=== PATIENT | female | born 1980 | race Caucasian/White ===

== ENCOUNTER → 2016-08-28 | Outpatient (CLI) | payer BC ==
[~2016-08-28] MED LIST: BUTA1CAP17 PO; MULTTAB58 PO
[2016-08-28 09:36] LABS: MEAN CELL VOLUME 93.8 fL (80-100); MEAN CORPUSCULAR HEMOGLOBIN 30.2 pg (25-34); MEAN CORPUSCULAR HGB CONC 32.2 g/dl (32-36); MEAN PLATELET VOLUME 9.5 fL (7.4-10.4); PLATELET COUNT 276 K/uL (130-400); RED BLOOD COUNT 4.37 M/uL (4.2-5.4); WHITE BLOOD COUNT 7.89 K/uL (4.8-10.8)
[2016-08-28 09:55] LABS: CHOLESTEROL/HDL RATIO 3.2; THYROID STIMULATING HORMONE 1.17 uIu/ml (0.300-4.500)
== END | disposition home or self-care (01) ==
LOC: C.LAB1850 06:57
PROVIDERS: ATTEND Internal Medicine
DX: D50.9 Iron deficiency anemia, unspecified (principal); Z83.49 Family history of other endocrine, nutritional and metabolic diseases

== ENCOUNTER → 2017-09-12 | Outpatient (CLI) | payer BC ==
--- NOTE | 2017-09-12 13:21 | DIAGNOSTIC IMAGING REPORT ---
THYROID ULTRASONOGRAPHY CLINICAL HISTORY: Thyroid goiter multinodular gland COMPARISON STUDY: Outside [facility] study performed March 2015 FINDINGS: The right lobe of the thyroid measures 59 x 14 x 24 mm. There are multiple circumscribed hypoechoic right lobe nodules most of which demonstrate colloid artifact. The largest is located within the midpole measuring 8 mm in diameter. Minimal interval growth is identified when compared the prior study The left of the thyroid measures 50 x 11 x 17 mm. There are multiple circumscribed hypoechoic left lobe nodules, many of which demonstrate colloid artifact. The largest measures 1 cm. Minimal interval growth is identified when compared the prior study IMPRESSION: Multinodular thyroid gland demonstrating minimal interval growth when compared the prior March 2015 study. None of the nodules demonstrate morphologically suspicious characteristics. Electronically signed by: Nicolas Garduno M.D. 09/12/2017 1:19 PM Dictated Date/Time: 09/12/2017 1:16 PM
== END | disposition home or self-care (01) ==
LOC: C.ULTR 11:29
PROVIDERS: ATTEND Internal Medicine Endocrinology, Diabetes & Metabolism
DX: E04.2 Nontoxic multinodular goiter (principal)

== ENCOUNTER → 2017-12-18 | Outpatient (CLI) | payer BC | END | disposition home or self-care (01) | LOC: C.LAB1850 07:17 | PROVIDERS: ATTEND Internal Medicine | DX: Z00.00 Encounter for general adult medical examination without abnormal findings (principal); Z83.49 Family history of other endocrine, nutritional and metabolic diseases ==

== ENCOUNTER → 2017-12-18 | Outpatient (CLI) | payer BC | END | disposition home or self-care (01) | LOC: C.LAB1850 07:20 | PROVIDERS: ATTEND Internal Medicine Endocrinology, Diabetes & Metabolism | DX: E04.9 Nontoxic goiter, unspecified (principal); E55.9 Vitamin D deficiency, unspecified ==

== ENCOUNTER 2020-03-16 21:20 | Observation (INO) ==
[2020-03-16] MEDS ORDERED: SODIUM CHLORIDE 0.9% 1000ML 1,000 ML IV SCH (21:45)
--- NOTE | 2020-03-16 21:48 | Emergency Department Note ---
History of Present Illness General Chief complaint: Abdominal Pain Stated complaint: HYSTERECTOMY SATURDAY, FEVER, ABD PAIN Time Seen by Provider: 03/16/20 21:30 History of Present Illness Maximum Pain Intensity: 6 This is a 39-year-old female that presents to the emergency department via [employer] vehicle with complaints "hysterectomy Saturday, fever, abdominal pain". The patient notes that this past Saturday, 03/11 she underwent total laparoscopic hysterectomy, as well as bilateral salpingectomy. Patient notes that ovaries are still present. She was doing well in the postoperative state until yesterday evening noting that the pain sharply increased. It is in the lower pelvic region and notes also in the rectal region. She has been moving the bowels without difficulty. There is associated nausea. Overall discomfort currently is a 6/10 but will sharply increase randomly. She denies any chest pain, shortness of breath, cough, loss of taste or smell. Home Medications Medication Instructions Recorded Confirmed Type [id number] 1 tab PO DAILY PRN 12/20/18 03/16/20 History ibuprofen 600 mg PO Q6H PRN 12/20/18 03/16/20 History rizatriptan 5 mg PO DIRECTED PRN 02/16/20 03/16/20 History acetaminophen [Tylenol] 325 mg PO QID PRN 03/16/20 03/16/20 History docusate sodium [Stool Softener] 100 mg PO BID PRN 03/16/20 03/16/20 History oxycodone-acetaminophen 1 tab PO Q4H PRN 03/16/20 03/16/20 History simethicone [Gas-X Extra Strength] 125 mg PO TID PRN 03/16/20 03/16/20 History Allergies Allergy/AdvReac Type Severity Reaction Status Date / Time No Known Allergies Allergy Verified 03/16/20 22:08 Past Med/Surg History Medical History Anxiety Arthritis cervical- no ROM limitations Gastritis H pylori ulcer hx Kidney stones Migraine Renal colic Surgical History History of adenoidectomy History of colonoscopy History of cystoscopy + stent History of esophagogastroduodenoscopy (EGD) History of lithotripsy x2 History of tonsillectomy History of tooth extraction WTE Family History Mother Family history of reaction to anesthesia PONV, DIZZINESS Grandfather (Maternal) Family history of diabetes mellitus Grandfather (Paternal) Family history of diabetes mellitus Grandmother (Paternal) Family history of diabetes mellitus Grandmother (Maternal) Family history of diabetes mellitus Other No significant family history Social History Smoking Status: Never smoker Second Hand Exposure: No; Hx Alcohol Use: Yes Alcohol type: wine Hx Substance Use: No Preferred Language: Albanian Communication Ability: Effective Beater Room Helper Required: No Beliefs That Will Affect Care: None Current Living Situation: Spouse and Family Feels Safe at Home: Yes Assistive Devices: Glasses Review of Systems A total of 10 systems reviewed and were otherwise negative Physical Exam Vital Signs Vital Signs - 24 hr 03/16/20 21:25 03/16/20 22:30 Temperature 37.6 C H Temperature Source Oral Pulse Rate 109 H 81 Pulse Rate [Apical] 81 Pulse Rhythm Regular Pulse Rhythm [Apical] Regular Pulse Strength [Apical] Normal Respiratory Rate 18 14 Respiratory Effort / Characteristics Non-Labored Spontaneous Non-Labored Spontaneous Respiratory Depth Normal Normal Respiratory Pattern Regular Regular Blood Pressure 124/68 Blood Pressure [Left Arm] 103/65 Blood Pressure Mean 86 Blood Pressure Mean [Left Arm] 77 Blood Pressure Position [Left Arm] Semi-fowlers Pulse Oximetry 96 100 Oxygen Delivery Method Room Air Room Air Sepsis Recent Fever Within 48 Hours Yes Sepsis New/Unexplained Change in Mental Status N/A Sepsis Action Taken by Nursing No Action Required VITAL SIGNS - Vital signs and nursing notes were reviewed. Patient is borderline tachycardic with a temperature of 37.6 C. GENERAL - 39-year-old female appearing her stated age who is in no acute distress. Communicates well with provider and answers questions appropriately. SKIN - Without rashes. HEAD - NC/AT. NECK - Neck with FROM. No nuchal rigidity. LUNGS - Chest wall symmetric without accessory muscle use, intercostals retr actions, or central cyanosis. Normal vesicular breath sounds CTA B/L. No wheezes, rales, or rhonchi appreciated. CARDIAC - RRR with S1/S2. No murmur, rubs, or gallops appreciated. ABDOMEN - Abdominal contour normal without pulsations or visible masses. BS normoactive all four quadrants. There is bilateral lower abdominal tenderness to palpation. No palpable masses, hepatosplenomegaly, or ascites noted. EXTREMITIES - No clubbing or peripheral cyanosis. No pretibial edema present. +5/5 strength noted in UE/LE bilaterally. NEUROLOGIC - Cranial nerves II through XII grossly intact. Sensory intact to light touch throughout. PSYCH - A&O, and cooperates fully with examiner. Pt is very pleasant and interacts well with examiner. Course Administered Medications Discontinued Medications Sodium Chloride (Nss 1000ml) 1,000 mls @ 999 mls/hr IV .Q1H1M CHAUNCEY Stop: 03/16/20 22:45 Last Infusion: 03/16/20 23:30 Dose: 0 mls/hr Documented by: [id number] Admin: 03/16/20 22:40 Dose: 999 mls/hr Documented by: [id number] Ioversol (Ioversol 100ml) 93 ml IV ONCE ONE Stop: 03/16/20 23:18 Last Admin: 03/16/20 23:17 Dose: 93 ml Documented by: [id number] Morphine Sulfate (Morphine Sulfate 4 Mg/Ml 1 Ml Carp\\Vial) 4 mg IV NOW STA Stop: 03/16/20 23:36 Last Admin: 03/16/20 23:39 Dose: 4 mg Documented by: [id number] Morphine Sulfate (Morphine Sulfate 4 Mg/Ml 1 Ml Carp\\Vial) 4 mg IV NOW STA Stop: 03/17/20 01:37 Last Admin: 03/17/20 01:37 Dose: 4 mg Documented by: [id number] Ondansetron HCl (Ondansetron Inj 2 Mg/Ml 2 Ml Vial) 4 mg IV NOW STA Stop: 03/16/20 23:36 Last Admin: 03/16/20 23:39 Dose: 4 mg Documented by: [id number] Medical Decision Making Laboratory Data Result diagrams: 03/16/20 22:17 03/16/20 22:17 Lab Results 03/16/20 03/16/20 03/16/20 Range/Units 22:17 22:17 22:17 WBC 17.05 H (4.8-10.8) K/uL RBC 3.96 L (4.2-5.4) M/uL Hgb 12.2 (12.0-16.0) g/dL Hct 36.9 L (37-47) % MCV 93.2 (80-100) fL MCH 30.8 (25-34) pg MCHC 33.1 (32-36) g/dL RDW Std Deviation 46.0 (36.4-46.3) fL RDW Coeff of Aspen 13.3 (11.5-14.5) % Plt Count 266 (130-400) K/uL MPV 9.5 (7.4-10.4) fL Immature Gran % (Auto) 0.2 % Neut % (Auto) 82.6 % Lymph % (Auto) 8.2 % Bell % (Auto) 8.4 % Eos % (Auto) 0.5 % Baso % (Auto) 0.1 % Neut # (Auto) 14.09 H (1.4-6.5) K/uL Lymph # (Auto) 1.39 (1.2-3.4) K/uL Bell # (Auto) 1.43 H (0.11-0.59) K/uL Eos # (Auto) 0.09 (0-0.5) K/uL Baso # (Auto) 0.01 (0-0.2) K/uL Immature Gran # (Auto) 0.04 H (0.00-0.02) K/uL Sodium 138 (136-145) mmol/L Potassium 3.5 (3.5-5.1) mmol/L Chloride 106 (98-107) mmol/L Carbon Dioxide 25 (21-32) mmol/L Anion Gap 7.0 (3-11) BUN 7 (7-18) mg/dl Creatinine 0.70 (0.6-1.2) mg/dl Est Cr Clr Drug Dosing 102.9 ml/min Est GFR ( Amer) 124.7 Est GFR (Non-Af Amer) 107.6 BUN/Creatinine Ratio 9.6 L (10-20) Glucose 114 H (70-99) mg/dl Lactate 0.8 (0.4-2.0) mmol/L Calcium 9.2 (8.5-10.1) mg/dl Magnesium 1.8 (1.8-2.4) mg/dl Total Bilirubin 0.4 (0.2-1) mg/dl AST 26 (15-37) U/L ALT 38 (12-78) U/L Alkaline Phosphatase 65 (45-117) U/L Troponin I < 0.015 (0-0.045) ng/ml Total Protein 7.3 (6.4-8.2) gm/dl Albumin 3.6 (3.4-5.0) gm/dl Globulin 3.7 (2.5-4.0) gm/dl Albumin/Globulin Ratio 1.0 (0.9-2) Imaging Data Radiologist's Impression: CT ABDOMEN & PELVIS With Contrast: Comparison: 12/20/2018 2/2 stable left lateral lower lobe 4.5 mm lung nodule. Mild fatty infiltration of liver 2-3 mm left kidney mid to lower pole nonobstructive stones and bilateral renal sub-centimeters cortical cysts. Status post hysterectomy. Negative for any pelvic abscess. Small dependent pelvic cul-de-sac free fluid. Urinary bladder is unremarkable. Small bowel and large bowel loops are seen unremarkable. Mild ileus may be present. Radiologist: Gómez Moody MD Study ready at 23:51 and initial results transmitted at 00:01 US VENOUS BILATERAL LOWER EXTREMITIES: No evidence for bilateral lower extremity DVT. Radiologist: Dre Bean M.D. Study ready at 23:28 and initial results transmitted at 23:40 [facility] Narrative Patient was seen and evaluated as above in room in room B6. Review was performed of nursing notes and vital signs. I did review pertinent previous visits and patient history. After obtaining a thorough history and physical examination the above work up was performed. She presents to us today status post total laparoscopic hysterectomy and bilateral salpingectomy this past Saturday, 11 March. Patient was doing well in the postoperative setting until yesterday and today. She notes lower abdominal discomfort, rectal pain and fever. No upp er respiratory symptoms. IV access was established. Labs were drawn. I did notify the on-call customer complaint service supervisor, Dr. Mars regarding the presentation. He came to evaluate the patient. CT scan was obtained the abdomen and pelvis. I did obtain Doppler ultrasounds of the lower extremities noting the cramping sensation she was experiencing in the bilateral legs. Ultrasounds negative. CT scan is overall reassuring as there is no abscess however given the patient's clinical presentation patient be admitted by the gynecology service for further evaluation and management. Please refer to further documentation regarding her stay. Laboratory studies reveal leukocytosis 17.05 without significant anemia. No emergent metabolic disturbance. No evidence of UTI. Covid testing negative. While in the department, I personally reevaluated the patient several times and each time the patient was found to be resting comfortably but did have returning pain therefore further IV analgesics were ordered. In the evaluation and treatment of this patient the following differential diagnoses were entertained: COVID-19, pneumonia, UTI, pyelonephritis, abscess, postoperative infection, among others. Impression & Plan Postoperative abdominal pain with fever Discharge Plan Visit Data Chief Complaint: Abdominal Pain Stated Complaint: HYSTERECTOMY SATURDAY, FEVER, ABD PAIN ED Provider: Rj Byrne ED Midlevel Provider: Felipe Marin Discharge Problem: Postoperative abdominal pain with fever Patient Disposition: Admitted As Inpatient Condition: Good Discharge Instructions Interventions: ED Discharge Assessment Last Done: 03/17/20 01:34
[2020-03-16 22:36] LABS: Basophils # (auto) 0.01 K/uL (0-0.2); Basophils % (auto) 0.1 %; Eosinophils # (auto) 0.09 K/uL (0-0.5); Eosinophils % (auto) 0.5 %; Hematocrit (blood only) 36.9 % (37-47); Hemoglobin 12.2 g/dL (12.0-16.0); Immature Granulocytes # (auto) 0.04 K/uL (0.00-0.02); Immature Granulocytes % (auto) 0.2 %; Lymphocytes # (auto) 1.39 K/uL (1.2-3.4); Lymphocytes % (auto) 8.2 %; Mean Corpuscular Hemoglobin 30.8 pg (25-34); Mean Corpuscular Hgb Conc 33.1 g/dL (32-36); Mean Corpuscular Volume 93.2 fL (80-100); Mean Platelet Volume 9.5 fL (7.4-10.4); Monocytes # (auto) 1.43 K/uL (0.11-0.59); Monocytes % (auto) 8.4 %; Neutrophils # (auto) 14.09 K/uL (1.4-6.5); Neutrophils % (auto) 82.6 %; Platelet Count 266 K/uL (130-400); RDW Coefficient of Variation 13.3 % (11.5-14.5); Red Blood Count 3.96 M/uL (4.2-5.4); White Blood Count 17.05 K/uL (4.8-10.8)
[2020-03-16 22:53] LABS: Alanine Aminotransferase 38 U/L (12-78); Albumin Level 3.6 gm/dl (3.4-5.0); Aspartate Aminotransferase 26 U/L (15-37); BUN Creatinine Ratio 9.6 (10-20); Blood Urea Nitrogen 7 mg/dl (7-18); Calcium 9.2 mg/dl (8.5-10.1); Carbon Dioxide 25 mmol/L (21-32); Chloride 106 mmol/L (98-107); Creatinine Clr Calc Pharmacy 102.9 ml/min; Est GFR (African American) 124.7; Est GFR (Non-African American) 107.6; Glucose 114 mg/dl (70-99); Magnesium 1.8 mg/dl (1.8-2.4); Potassium 3.5 mmol/L (3.5-5.1); Sodium 138 mmol/L (136-145)
[2020-03-16 22:57] LABS: Alkaline Phosphatase 65 U/L (45-117); Bilirubin,Total 0.4 mg/dl (0.2-1); Globulin 3.7 gm/dl (2.5-4.0); Total Protein 7.3 gm/dl (6.4-8.2); Troponin I < 0.015 ng/ml (0-0.045)
[2020-03-16] MEDS ORDERED: IOVERSOL 100ml IV ONE (23:17)
[2020-03-16] MEDS ORDERED: ONDANSETRON INJ 2 MG/ML 2 ML VIAL IV STA (23:35)
[2020-03-16] MEDS ORDERED: MoRPHine SULFATE 4 MG/ML 1 ML CARP\\VIAL IV STA (23:35)
[2020-03-17 00:01] LABS: Appearance Urine Clear (Clear); Bilirubin Urine Negative (Negative); Blood Urine Negative (Negative); Color Urine Yellow; Glucose Urine UA Negative (Negative); Ketones Urine Negative (Negative); Leukocyte Esterase Urine Negative (Negative); Nitrite Urine Negative (Negative); Protein Urine Negative (Negative); Specific Gravity Urine 1.016 (1.000-1.030); Urobilinogen Urine Negative (Negative); pH Urine 8.5 (4.5-7.5)
--- NOTE | 2020-03-17 01:32 | History and Physical Report ---
DATE OF ADMISSION: 03/16/2020 CHIEF COMPLAINT: Pelvic pain, temperature. HISTORY OF PRESENT ILLNESS: The patient is a 39-year-old 2, para 2. Her general health is good. She does have a history of chronic migraines for which she takes Fioricet p.r.n. No known drug allergies. She underwent laparoscopic hysterectomy on 03/11/2020. Ovaries were left in, tubes were removed. She did okay the first couple of postoperative days, then she started to have pain around Saturday night. She had pain in the midline, she had pain in the rectal area, and she also developed an elevated temperature. She states that on two occasions she took her temperature and it was 100.5, also just had generalized discomfort. PAST MEDICAL HISTORY: History of migraine. ALLERGIES: She has no known drug allergies. PAST SURGICAL HISTORY: In the past, she has had lithotripsy. She had T and A. She had a laparoscopic hysterectomy on 03/11/2020. SOCIAL HISTORY: No smoking, no alcohol intake. Works at the hospital. FAMILY HISTORY: She has 1 boy and 1 girl in good health. Mom is 63, has a benign brain tumor; father 68, has lymphoma; she has 1 brother in good health. REVIEW OF SYSTEMS: Long-term history of headaches. PHYSICAL EXAMINATION: GENERAL: Well-developed, well-nourished, 39-year-old white female, alert, oriented x3 and cooperative, in mild distress. EYES: Conjunctivae are pink. Sclerae white, no evidence of jaundice. EARS: Had normal light reflex bilaterally. HEART: Had a regular rhythm. S1, S2 are normal. LUNGS: Clear to auscultation and percussion. ABDOMEN: Tender only over the surgical ports and bowel sounds were normal. MUSCULOSKELETAL: Revealed no calf tenderness. There was no vaginal bleeding. IMPRESSIONS OF THIS CASE: Status post T and A, status post lithotripsy, history of migraines, status post laparoscopic hysterectomy on 03/11/2020, and possible vaginal cuff infection.
[2020-03-17] MEDS ORDERED: MoRPHine SULFATE 4 MG/ML 1 ML CARP\\VIAL IV STA (01:36)
[2020-03-17] MEDS ORDERED: ONDANSETRON INJ 2 MG/ML 2 ML VIAL IV PRN (01:51)
[2020-03-17] MEDS ORDERED: LACTATED RINGER'S 1,000 ML IV SCH (01:51)
[2020-03-17] MEDS ORDERED: MEPERIDINE HCL 50 MG/ML CARP IM PRN (01:51)
[2020-03-17] MEDS: cefOXitin 2,000 MG in DEXTROSE 5% 50 ML IV SCH ×4 (02:13→19:41)
--- NOTE | 2020-03-17 08:12 | Ultrasound Report ---
ULTRASOUND BILATERAL LOWER EXTREMITY VENOUS CLINICAL HISTORY: Postoperative leg pain. COMPARISON STUDY: Right lower extremity venous ultrasound dated 01/31/2015. TECHNIQUE: Real-time, grayscale, and color Doppler sonography of the deep veins of the right and left lower extremity was performed from the inguinal crease to the calf. Compression and augmentation wer e utilized. FINDINGS: There is no sonographic evidence of deep venous thrombosis identified in the right or left lower extremity. The common femoral, superficial femoral, and popliteal veins are patent and normally compressible bilaterally. The greater saphenous vein and the profunda femoris vein at the junction w ith the common femoral vein are clear in both legs. The visualized calf veins are patent bilaterally. IMPRESSION: There is no sonographic evidence of deep venous thrombosis identified in the right or lef t lower extremity. ACT 112: Negative or not required by law. Electronically signed by: Duke Marcus M.D. 03/17/2020 8:10 AM
[2020-03-17] MEDS ORDERED: ACETAMINOPHEN 325 MG TAB PO PRN (08:23)
[2020-03-17] MEDS ORDERED: oxyCODONE/ACETAMINOPHEN 5mg/325mg TAB PO PRN (08:24)
--- NOTE | 2020-03-17 08:27 | CT Scan Report ---
CT SCAN OF THE ABDOMEN AND PELVIS WITH IV CONTRAST CLINICAL HISTORY: Postoperative fever. Pelvic pain. Hysterectomy. COMPARISON STUDY: Abdominal CT dated 12/20/2018. TECHNIQUE: Following the IV administration of 93 cc of Optiray 320, CT scan of the abdomen and pelvi s is performed from the lung bases to the proximal femora. Images are reviewed in the axial, sagittal , and coronal planes. IV contrast was administered without complication. Note that the examination is suboptimal without enteric contrast. A dose lowering technique was utilized adhering to the principl es of ALA. CT DOSE: 370.07 mGy.cm FINDINGS: Lung bases: The heart is normal in size and without pericardial effusion. A 5 mm left lower lobe pulm onary nodule seen on image #5 is unchanged. The lung bases are otherwise clear. Liver: The contrast-enhanced liver is normal in size, contour, and attenuation. There is no intrahepa tic biliary ductal dilatation. The hepatic veins and portal veins are patent. Gallbladder: Contracted. Spleen: Normal in size and attenuation. Pancreas: Unremarkable. Adrenal glands: Unremarkable. Kidneys: The contrast enhanced kidneys are normal in size and without hydronephrosis. The kidneys enh ance symmetrically. There are numerous nonobstructing left renal calculi. A 10 mm cyst is noted in th e interpolar right kidney. Abdominal vasculature: The abdominal aorta is normal in course and caliber. Bowel: Several small amounts are mildly distended and fluid-filled. There is mild wall thickening wit hin small bowel loops in the pelvis adjacent to the operative site. There is no evidence of obstructi on. The appendix is nonvisualized. Peritoneum: There is no intraperitoneal free air or abdominal ascites. There is a small fat-containin g umbilical hernia. Lymphadenopathy: None. Pelvic viscera: The bladder is distended but otherwise normal in appearance. The uterus is surgically absent. There is a small volume of free fluid in the cul-de-sac. No organized/peripherally enhancing fluid collection is identified. Skeletal structures: No lytic or blastic lesions are seen. IMPRESSION: 1. The uterus is surgically absent. 2. There is a small volume of nonspecific free fluid in the cul-de-sac. No organized/peripherally enh ancing fluid collection is identified. 3. There are mildly distended and fluid-filled loops of small bowel with no evidence of obstruction. Additionally, there are mildly thick-walled loops of small bowel in the pelvis. This is likely relate d recent surgery/inflammation. Correlate clinically for evidence of a nonspecific enteritis. A mild i leus is not excluded. 4. Nonvisualization of the appendix. 5. Left-sided nephrolithiasis. ACT 112: Negative or not required by law. Electronically signed by: Duke Marcus M.D. 03/17/2020 8:26 AM
[2020-03-17] MEDS: SIMETHICONE 80 MG CHEW PO SCH ×3 (09:03→20:54)
[2020-03-17] MEDS: DOCUSATE SODIUM 100 MG CAP PO SCH ×2 (09:03→20:54)
[2020-03-17] MEDS: IBUPROFEN 600 MG TAB PO PRN ×2 (09:09→18:09)
--- NOTE | 2020-03-17 11:01 | Gynecologic Progress Note ---
Date of Service March 17, 2020 Assessment & Plan Admission and Anticipated Discharge Date Admission Date: March 16, 2020 Subjective Pt doing well s/p lap hysterectomy Day 5 admitted for possible cuff cellulitis pt doing well on Mefoxin afebrile since Mefoxin was started <24 hrs ago Plan continue Antibx Results & Data ([facility]) Vital Signs (Past 12 Hours) Vital Signs Temp Pulse Pulse Resp BP Pulse Ox 03/17/20 07:17 37.4 C 81 20 105/70 100 03/17/20 05:00 37.2 C 68 18 97/60 L 99 03/17/20 01:40 37.5 C 75 18 103/70 93 03/17/20 01:10 80 19 105/81 97 03/16/20 23:42 72 19 107/64 100
[2020-03-17 11:31] LABS: Basophils # (auto) 0.01 K/uL (0-0.2); Basophils % (auto) 0.1 %; Eosinophils # (auto) 0.07 K/uL (0-0.5); Eosinophils % (auto) 0.4 %; Hematocrit (blood only) 35.5 % (37-47); Hemoglobin 11.4 g/dL (12.0-16.0); Immature Granulocytes # (auto) 0.02 K/uL (0.00-0.02); Immature Granulocytes % (auto) 0.1 %; Lymphocytes # (auto) 1.72 K/uL (1.2-3.4); Lymphocytes % (auto) 10.5 %; Mean Corpuscular Volume 93.4 fL (80-100); Mean Platelet Volume 9.4 fL (7.4-10.4); Monocytes # (auto) 1.54 K/uL (0.11-0.59); Monocytes % (auto) 9.4 %; Neutrophils # (auto) 12.97 K/uL (1.4-6.5); Neutrophils % (auto) 79.5 %; Platelet Count 226 K/uL (130-400); RDW Coefficient of Variation 13.4 % (11.5-14.5); RDW Standard Deviation 45.8 fL (36.4-46.3); White Blood Count 16.33 K/uL (4.8-10.8)
[2020-03-17 11:35] LABS: Mean Corpuscular Hgb Conc 32.1 g/dL (32-36)
--- NOTE | 2020-03-17 12:53 | Gynecologic Progress Note ---
Date of Service March 17, 2020 Assessment & Plan (1) Postoperative abdominal pain with fever: Continue IV antibiotics until afebrile x 24 hours. WBC decreasing. Pelvic pain improving. Patient tolerating regular diet. Anticipate possible discharge home on 03/18/2020 with oral antibiotics. Present on Admission?: Yes Admission and Anticipated Discharge Date Admission Date: March 16, 2020 Subjective 39 yo s/o TLH/BS/cystoscopy on 03/11/2020 admitted on 03/16/2020 for suspected vaginal cuff cellulitis. Patient currently on antibiotics and reports improvement in pain. Denies vaginal bleeding or abnormal vaginal discharge. Denies N/V, fevers, chills, SOB or CP. Last elevated temperature on 03/16/2020. Denies urinary or bowel symptoms. Review of Systems Review of Systems: All systems reviewed & are unremarkable except as noted in Subjective Physical Exam Constitutional: WD/WN, vitals as above Respiratory: normal respiratory effort, lungs clear to auscultation Cardiovascular: RRR, no murmur, no edema Gastrointestinal (Abdomen): normal bowel sounds, soft, nontender, no hepatosplenomegaly Incisions: C/D/I. No erythema or edema. Ecchymosis at incision sites Results & Data ([facility]) Vital Signs (Past 12 Hours) Vital Signs Temp Pulse Pulse Resp BP Pulse Ox 03/17/20 11:37 36.8 C 62 18 96/63 L 99 03/17/20 07:17 37.4 C 81 20 105/70 100 03/17/20 05:00 37.2 C 68 18 97/60 L 99 03/17/20 01:40 37.5 C 75 18 103/70 93 03/17/20 01:10 80 19 105/81 97
--- NOTE | 2020-03-17 15:24 | Electrocardiogram Report ---
Test Reason : Blood Pressure : / mmHG Vent. Rate : 084 BPM Atrial Rate : 084 BPM P-R Int : 126 ms QRS Dur : 076 ms QT Int : 350 ms P-R-T Axes : 052 071 056 degrees QTc Int : 413 ms Normal sinus rhythm Septal infarct (cited on or before 31-JAN-2015) Abnormal ECG When compared with ECG of 31-JAN-2015 20:56, No significant change was found Confirmed by Khoi Hurst ([id number]) on 03/17/2020 3:24:10 PM Referred By: Cyndi Palma Confirmed By:Khoi Hurst
[2020-03-18] MEDS: cefOXitin 2,000 MG in DEXTROSE 5% 50 ML IV SCH ×2 (01:56→08:12)
[2020-03-18] MEDS: IBUPROFEN 600 MG TAB PO PRN ×2 (01:57→08:25)
[2020-03-18] MEDS: SIMETHICONE 80 MG CHEW PO SCH ×2 (08:25→13:03)
[2020-03-18] MEDS: DOCUSATE SODIUM 100 MG CAP PO SCH (08:25)
--- NOTE | 2020-03-18 09:19 | Obstetrical Progress Note ---
Date of Service March 18, 2020 Assessment & Plan Admission and Anticipated Discharge Date Admission Date: March 16, 2020 Subjective Patient is seen and examined. She feels better. Pain is under control with oral meds. Ambulating without dizziness Voiding without difficulty Tolerating regular diet with out N&V, but does not have apetite Flatus + but minimal BM none since 03/15 No bleeding nor d/c No fever/ chills/ CP/ SOB/ N&V/ Leg pain Vital Signs Temp Pulse Resp BP Pulse Ox 03/18/20 03:00 37.0 C 76 18 102/68 98 03/17/20 23:10 36.7 C 63 18 97/66 L 100 03/17/20 19:35 37.4 C 81 18 106/68 100 03/17/20 16:00 36.5 C 76 16 105/68 100 03/17/20 11:37 36.8 C 62 18 96/63 L 99 Intake and Output 03/17/20 03/18/20 03/18/20 22:59 06:59 14:59 Intake Total 60 / 930 60 / 930 Balance 60 / 480 60 / 480 Intake: IV 60 / 740 60 / 740 Mefoxin 2,000 mg In D5w 50 ml @ 60 / 240 60 / 240 100 mls/hr IV Q6H [facility] Rx#: [id number] Lab Results 03/16/20 03/16/20 03/16/20 Range/Units 22:17 22:17 22:17 WBC 17.05 H (4.8-10.8) K/uL RBC 3.96 L (4.2-5.4) M/uL Hgb 12.2 (12.0-16.0) g/dL Hct 36.9 L (37-47) % MCV 93.2 (80-100) fL MCH 30.8 (25-34) pg MCHC 33.1 (32-36) g/dL RDW Std Deviation 46.0 (36.4-46.3) fL RDW Coeff of Aspen 13.3 (11.5-14.5) % Plt Count 266 (130-400) K/uL MPV 9.5 (7.4-10.4) fL Immature Gran % (Auto) 0.2 % Neut % (Auto) 82.6 % Lymph % (Auto) 8.2 % [place] % (Auto) 8.4 % Eos % (Auto) 0.5 % Baso % (Auto) 0.1 % Neut # (Auto) 14.09 H (1.4-6.5) K/uL Lymph # (Auto) 1.39 (1.2-3.4) K/uL [place] # (Auto) 1.43 H (0.11-0.59) K/uL Eos # (Auto) 0.09 (0-0.5) K/uL Baso # (Auto) 0.01 (0-0.2) K/uL Immature Gran # (Auto) 0.04 H (0.00-0.02) K/uL Sodium 138 (136-145) mmol/L Potassium 3.5 (3.5-5.1) mmol/L Chloride 106 (98-107) mmol/L Carbon Dioxide 25 (21-32) mmol/L Anion Gap 7.0 (3-11) BUN 7 (7-18) mg/dl Creatinine 0.70 (0.6-1.2) mg/dl Est Cr Clr Drug Dosing 102.9 ml/min Est GFR ( Amer) 124.7 Est GFR (Non-Af Amer) 107.6 BUN/Creatinine Ratio 9.6 L (10-20) Glucose 114 H (70-99) mg/dl Lactate 0.8 (0.4-2.0) mmol/L Calcium 9.2 (8.5-10.1) mg/dl Magnesium 1.8 (1.8-2.4) mg/dl Total Bilirubin 0.4 (0.2-1) mg/dl AST 26 (15-37) U/L ALT 38 (12-78) U/L Alkaline Phosphatase 65 (45-117) U/L Troponin I < 0.015 (0-0.045) ng/ml Total Protein 7.3 (6.4-8.2) gm/dl Albumin 3.6 (3.4-5.0) gm/dl Globulin 3.7 (2.5-4.0) gm/dl Albumin/Globulin Ratio 1.0 (0.9-2) Urine Color Urine Appearance (Clear) Urine pH (4.5-7.5) Ur Specific [place] (1.000-1.030) Urine Protein (Negative) Urine Glucose (UA) (Negative) Urine Ketones (Negative) Urine Blood (Negative) Urine Nitrite (Negative) Urine Bilirubin (Negative) Urine Urobilinogen (Negative) Ur Leukocyte Esterase (Negative) SARS-CoV-2 Ag (Rapid) (Negative) 03/16/20 03/17/20 03/17/20 Range/Units 23:30 01:09 11:11 WBC 16.33 H (4.8-10.8) K/uL RBC 3.80 L (4.2-5.4) M/uL Hgb 11.4 L (12.0-16.0) g/dL Hct 35.5 L (37-47) % MCV 93.4 (80-100) fL MCH 30.0 (25-34) pg MCHC 32.1 (32-36) g/dL RDW Std Deviation 45.8 (36.4-46.3) fL RDW Coeff of Aspen 13.4 (11.5-14.5) % Plt Count 226 (130-400) K/uL MPV 9.4 (7.4-10.4) fL Immature Gran % (Auto) 0.1 % Neut % (Auto) 79.5 % Lymph % (Auto) 10.5 % [place] % (Auto) 9.4 % Eos % (Auto) 0.4 % Baso % (Auto) 0.1 % Neut # (Auto) 12.97 H (1.4-6.5) K/uL Lymph # (Auto) 1.72 (1.2-3.4) K/uL [place] # (Auto) 1.54 H (0.11-0.59) K/uL Eos # (Auto) 0.07 (0-0.5) K/uL Baso # (Auto) 0.01 (0-0.2) K/uL Immature Gran # (Auto) 0.02 (0.00-0.02) K/uL Sodium (136-145) mmol/L Potassium (3.5-5.1) mmol/L Chloride (98-107) mmol/L Carbon Dioxide (21-32) mmol/L Anion Gap (3-11) BUN (7-18) mg/dl Creatinine (0.6-1.2) mg/dl Est Cr Clr Drug Dosing ml/min Est GFR ( Amer) Est GFR (Non-Af Amer) BUN/Creatinine Ratio (10-20) Glucose (70-99) mg/dl Lactate (0.4-2.0) mmol/L Calcium (8.5-10.1) mg/dl Magnesium (1.8-2.4) mg/dl Total Bilirubin (0.2-1) mg/dl AST (15-37) U/L ALT (12-78) U/L Alkaline Phosphatase (45-117) U/L Troponin I (0-0.045) ng/ml Total Protein (6.4-8.2) gm/dl Albumin (3.4-5.0) gm/dl Globulin (2.5-4.0) gm/dl Albumin/Globulin Ratio (0.9-2) Urine Color Yellow Urine Appearance Clear (Clear) Urine pH 8.5 H (4.5-7.5) Ur Specific [place] 1.016 (1.000-1.030) Urine Protein Negative (Negative) Urine Glucose (UA) Negative (Negative) Urine Ketones Negative (Negative) Urine Blood Negative (Negative) Urine Nitrite Negative (Negative) Urine Bilirubin Negative (Negative) Urine Urobilinogen Negative (Negative) Ur Leukocyte Esterase Negative (Negative) SARS-CoV-2 Ag (Rapid) Negative (Negative) PE: General: Alert, orientedx3, NAD CVS: S1S2 RRR Lungs; CTAB Abd: soft, NT, Distended+, BS+, Incisions C/D/I, bruising+ Perineum intact, no blood Ext; NT, no edema AP: 39 yo s/p TLH on 03/11, admitted for cuff cellulitis on 03/16 on IV Cefoxitin VSS Afebrile doing well CBC pending Low appetite and no BM, plan to start Reglan, MOM and ambulate and then reevaluate Continue routine postop care Encourage ambulation, PO intake All questions were answered Possible D/C home this afternoon Results & Data ([facility]) Vital Signs (Past 12 Hours) Vital Signs Temp Pulse Resp BP Pulse Ox 03/18/20 03:00 37.0 C 76 18 102/68 98 03/17/20 23:10 36.7 C 63 18 97/66 L 100
[2020-03-18 09:47] LABS: Basophils # (auto) 0.01 K/uL (0-0.2); Basophils % (auto) 0.1 %; Eosinophils # (auto) 0.16 K/uL (0-0.5); Eosinophils % (auto) 1.1 %; Hematocrit (blood only) 36.9 % (37-47); Hemoglobin 12.1 g/dL (12.0-16.0); Immature Granulocytes # (auto) 0.04 K/uL (0.00-0.02); Immature Granulocytes % (auto) 0.3 %; Lymphocytes # (auto) 1.04 K/uL (1.2-3.4); Lymphocytes % (auto) 7.3 %; Mean Corpuscular Hemoglobin 30.9 pg (25-34); Mean Corpuscular Hgb Conc 32.8 g/dL (32-36); Mean Corpuscular Volume 94.4 fL (80-100); Mean Platelet Volume 9.4 fL (7.4-10.4); Monocytes # (auto) 1.35 K/uL (0.11-0.59); Monocytes % (auto) 9.5 %; Neutrophils # (auto) 11.62 K/uL (1.4-6.5); Neutrophils % (auto) 81.7 %; Platelet Count 270 K/uL (130-400); RDW Coefficient of Variation 13.3 % (11.5-14.5); RDW Standard Deviation 46.1 fL (36.4-46.3); Red Blood Count 3.91 M/uL (4.2-5.4); White Blood Count 14.22 K/uL (4.8-10.8)
[2020-03-18] MEDS: MAGNESIUM HYDROXIDE SUSP 30 ML UDC PO ONE ×2 (10:05→11:32)
[2020-03-18] MEDS: METOCLOPRAMIDE HCL 5 MG TABLET PO SCH ×2 (11:06→13:02)
--- NOTE | 2020-03-18 12:53 | Obstetrical Progress Note ---
Date of Service March 18, 2020 Assessment & Plan Admission and Anticipated Discharge Date Admission Date: March 16, 2020 Subjective Patient is reevaluated She feels better and wants to go home She has been passing more gas and moved her bowels She ate breakfast and now eating lunch No N&V WBCC coming down Abd: soft, NT, ND, BS+ active Plan to d/c home and f/u in office Discussed when to call All questions were answered Results & Data ([facility]) Vital Signs (Past 12 Hours) Vital Signs Temp Pulse Resp BP Pulse Ox 03/18/20 11:30 36.6 C 76 18 109/76 97 03/18/20 08:10 37 C 77 18 107/71 100 03/18/20 03:00 37.0 C 76 18 102/68 98
== END 2020-03-18 13:15 | disposition home or self-care (01) ==
LOC: ED 21:20 → 4N 21:20
DX: G89.18 Other acute postprocedural pain; R50.82 Postprocedural fever

== ENCOUNTER 2020-11-09 03:43 | Observation (INO) ==
[2020-11-09 04:35] LABS: Hematocrit (blood only) 39.9 % (37-47); Hemoglobin 13.5 g/dL (12.0-16.0); Mean Corpuscular Hgb Conc 33.8 g/dL (32-36); Mean Corpuscular Volume 91.5 fL (80-100); Mean Platelet Volume 8.9 fL (7.4-10.4); Platelet Count 269 K/uL (130-400); RDW Coefficient of Variation 12.8 % (11.5-14.5); RDW Standard Deviation 43.1 fL (36.4-46.3); Red Blood Count 4.36 M/uL (4.2-5.4); White Blood Count 9.91 K/uL (4.8-10.8)
[2020-11-09 04:53] LABS: Alanine Aminotransferase 22 U/L (12-78); Aspartate Aminotransferase 13 U/L (15-37); BUN Creatinine Ratio 16.5 (10-20); Blood Urea Nitrogen 11 mg/dl (7-18); Calcium 9.3 mg/dl (8.5-10.1); Carbon Dioxide 28 mmol/L (21-32); Chloride 109 mmol/L (98-107); Est GFR (African American) 125.7 ml/min; Est GFR (Non-African American) 108.4 ml/min; Glucose 97 mg/dl (70-99); Lipase 266 U/L (73-393); Potassium 3.8 mmol/L (3.5-5.1); Sodium 139 mmol/L (136-145)
[2020-11-09 04:56] LABS: Albumin Globulin Ratio 1.1 (0.9-2); Alkaline Phosphatase 53 U/L (45-117); Bilirubin,Total 0.4 mg/dl (0.2-1); Globulin 3.7 gm/dl (2.5-4.0); Total Protein 7.7 gm/dl (6.4-8.2)
[2020-11-09] MEDS ORDERED: OPTIRAY 320 100ml IV ONE (05:12)
[2020-11-09 05:54] LABS: Appearance Urine Clear (Clear); Bilirubin Urine Negative (Negative); Blood Urine Negative (Negative); Color Urine Yellow; Glucose Urine UA Negative (Negative); Ketones Urine Negative (Negative); Leukocyte Esterase Urine Negative (Negative); Nitrite Urine Negative (Negative); Protein Urine Negative (Negative); Specific Gravity Urine 1.025 (1.000-1.030); Urobilinogen Urine Negative (Negative); pH Urine 7.5 (4.5-7.5)
--- NOTE | 2020-11-09 05:55 | Emergency Department Note ---
History of Present Illness General Chief complaint: GI Assessment Stated complaint: ULCER Time Seen by Provider: 11/09/20 04:24 History of Present Illness Provider complaint: epigastric pain throught to back Maximum Pain Intensity: 6 This patient is a 40-year-old female who presents emergency department with complaints of epigastric abdominal pain radiating through to her back. Patient states she was work yesterday and had a late lunch. She had [place] food and developed a moderate discomfort. After work she went home and had a meatball sandwich and developed a severe discomfort that radiated straight through to her back. She has a history of H. pylori and feels that this is a similar discomfort. She has taken multiple medications including Maalox, Prilosec, Augmentin today in an effort to alleviate the pain. Patient has a history of hysterectomy. She did recently start a new medication Ajovy for migraine therapy. Home Medications Medication Instructions Recorded Confirmed Type rlywowbvdr-yvwurzhtcnjap-pbmnkeyq 1 tab PO DAILY PRN 12/20/18 10/20/20 History 50 mg-325 mg-40 mg tablet rizatriptan 5 mg tablet 5 mg PO DIRECTED PRN 02/16/20 10/20/20 History biotin 5 mg capsule 5 mg PO DAILY 06/12/20 10/20/20 History fremanezumab-vfrm 225 mg/1.5 mL 225 mg SUBCUT MONTHLY #1.5 ml 10/20/20 10/20/20 Rx subcutaneous auto-injector (Ajovy) Allergies Allergy/AdvReac Type Severity Reaction Status Date / Time No Known Allergies Allergy Verified 10/20/20 15:35 Past Med/Surg History Medical History (Updated 11/09/20 @ 07:11 by Blanche Hicks MD) Anxiety Arthritis cervical- no ROM limitations Gastritis H pylori ulcer hx Kidney stones Migraine Postoperative abdominal pain with fever Renal colic Surgical History (Updated 11/09/20 @ 07:05 by Blanche Hicks MD) H/O: hysterectomy History of adenoidectomy History of colonoscopy History of cystoscopy + stent History of esophagogastroduodenoscopy (EGD) History of lithotripsy x2 History of tonsillectomy History of tooth extraction WTE Family History Mother Family history of reaction to anesthesia PONV, DIZZINESS Grandfather (Maternal) Family history of diabetes mellitus Grandfather (Paternal) Family history of diabetes mellitus Grandmother (Paternal) Family history of diabetes mellitus Grandmother (Maternal) Family history of diabetes mellitus Other No significant family history Social History Smoking Status: Never smoker Second Hand Exposure: No; Hx Alcohol Use: Yes Alcohol type: wine Hx Substance Use: No Preferred Language: Tajik Communication Ability: Effective Certified Indoor Environmentalist Required: No Beliefs That Will Affect Care: None Current Living Situation: Spouse and Family Feels Safe at Home: Yes Assistive Devices: None Review of Systems A total of 10 systems reviewed and were otherwise negative Physical Exam Vital Signs Vital Signs - 24 hr 11/09/20 03:45 11/09/20 04:12 11/09/20 04:26 Pulse Rate 55 L 55 L Respiratory Rate 17 23 Respiratory Effort / Characteristics Non-Labored Spontaneous Respiratory Depth Normal Blood Pressure Blood Pressure [Right Arm] Blood Pressure Mean Blood Pressure Mean [Right Arm] Blood Pressure Position [Right Arm] Pulse Oximetry 98 Oxygen Delivery Method Room Air Sepsis Recent Fever Within 48 Hours No Sepsis New/Unexplained Change in Mental Status No Sepsis Action Taken by Nursing No Action Required 11/09/20 04:30 11/09/20 04:36 11/09/20 04:41 Pulse Rate 52 L 53 L Respiratory Rate 22 20 21 Respiratory Effort / Characteristics Non-Labored Spontaneous Respiratory Depth Normal Blood Pressure Blood Pressure [Right Arm] Blood Pressure Mean Blood Pressure Mean [Right Arm] Blood Pressure Position [Right Arm] Pulse Oximetry 98 Oxygen Delivery Method Room Air Sepsis Recent Fever Within 48 Hours Sepsis New/Unexplained Change in Mental Status Sepsis Action Taken by Nursing 11/09/20 04:50 11/09/20 05:21 11/09/20 05:23 Pulse Rate 66 Respiratory Rate 23 16 Respiratory Effort / Characteristics Non-Labored Spontaneous Respiratory Depth Normal Blood Pressure 108/73 Blood Pressure [Right Arm] 108/73 Blood Pressure Mean 84 Blood Pressure Mean [Right Arm] 84 Blood Pressure Position [Right Arm] Sitting Pulse Oximetry 98 Oxygen Delivery Method Room Air Sepsis Recent Fever Within 48 Hours Sepsis New/Unexplained Change in Mental Status Sepsis Action Taken by Nursing Vital signs reviewed. General: Well-appearing 40-year-old female, in no significant distress. HEENT: No scleral icterus, PERRLA, neck supple. Atraumatic. Cardiovascular: Regular rate and rhythm, no extra sounds. Pulmonary: Clear to auscultation bilaterally, normal work of breathing. Abdomen: Soft, mild tenderness epigastric region, nondistended, positive bowel sounds. Musculoskeletal: Atraumatic, no peripheral edema. Neurologic: Patient awake alert and oriented x 3 Skin: Warm, dry, no rash Course Administered Medications Discontinued Medications Hydromorphone HCl (Hydromorphone Inj 0.5 Mg/0.5 Ml Syr) Confirm Administered Dose 0.5 mg .ROUTE .[employer] ONE Stop: 11/09/20 06:34 Last Admin: 11/09/20 06:45 Dose: 0.5 mg Documented by: [id number] Ioversol (Optiray 320 100ml) 100 ml IV ONCE ONE Stop: 11/09/20 05:13 Last Admin: 11/09/20 05:12 Dose: 93 ml Documented by: [id number] Ondansetron HCl (Ondansetron Inj 2 Mg/Ml 2 Ml Vial) Confirm Administered Dose 4 mg .ROUTE .[employer] ONE Stop: 11/09/20 06:34 Last Admin: 11/09/20 06:46 Dose: 4 mg Documented by: [id number] Medical Decision Making Differential Diagnosis Appendicitis, ovarian cyst, ovarian torsion, PID, infections, diverticulitis, UTI, obstruction, mesenteric ischemia, aortic pathology, inflammatory bowel disease, renal colic, PUD, pancreatitis, biliary pathology, hernia, volvulus, constipation, as well as other pathologies. Laboratory Data Result diagrams: 11/09/20 04:23 11/09/20 04:23 Lab Results 11/09/20 11/09/20 11/09/20 Range/Units 04:23 04:23 05:17 WBC 9.91 (4.8-10.8) K/uL RBC 4.36 (4.2-5.4) M/uL Hgb 13.5 (12.0-16.0) g/dL Hct 39.9 (37-47) % MCV 91.5 (80-100) fL MCH 31.0 (25-34) pg MCHC 33.8 (32-36) g/dL RDW Std Deviation 43.1 (36.4-46.3) fL RDW Coeff of Aspen 12.8 (11.5-14.5) % Plt Count 269 (130-400) K/uL MPV 8.9 (7.4-10.4) fL Sodium 139 (136-145) mmol/L Potassium 3.8 (3.5-5.1) mmol/L Chloride 109 H (98-107) mmol/L Carbon Dioxide 28 (21-32) mmol/L Anion Gap 2.0 L (3-11) BUN 11 (7-18) mg/dl Creatinine 0.67 (0.6-1.2) mg/dl Est Cr Clr Drug Dosing Not Reportable Est GFR ( Amer) 125.7 ml/min Est GFR (Non-Af Amer) 108.4 ml/min BUN/Creatinine Ratio 16.5 (10-20) Glucose 97 (70-99) mg/dl Calcium 9.3 (8.5-10.1) mg/dl Total Bilirubin 0.4 (0.2-1) mg/dl AST 13 L (15-37) U/L ALT 22 (12-78) U/L Alkaline Phosphatase 53 (45-117) U/L Total Protein 7.7 (6.4-8.2) gm/dl Albumin 4.0 (3.4-5.0) gm/dl Globulin 3.7 (2.5-4.0) gm/dl Albumin/Globulin Ratio 1.1 (0.9-2) Lipase 266 (73-393) U/L Urine Color Yellow Urine Appearance Clear (Clear) Urine pH 7.5 (4.5-7.5) Ur Specific [place] 1.025 (1.000-1.030) Urine Protein Negative (Negative) Urine Glucose (UA) Negative (Negative) Urine Ketones Negative (Negative) Urine Blood Negative (Negative) Urine Nitrite Negative (Negative) Urine Bilirubin Negative (Negative) Urine Urobilinogen Negative (Negative) Ur Leukocyte Esterase Negative (Negative) Imaging Data Radiologist's Impression: Abdomen/Pelvis CT 11/09/20 05:09 CT OF THE ABDOMEN AND PELVIS WITH CONTRAST CLINICAL HISTORY: Upper abdominal pain. COMPARISON STUDY: CT of the abdomen and pelvis March 16, 2020. TECHNIQUE: Following IV administration of 93 mL of Optiray, axial images of the abdomen and pelvis were obtained from the lung bases to the proximal femurs. Images were reviewed in the axial, sagittal, and coronal planes. IV contrast was administered without complication. Automated exposure control was utilized for the study. A dose lowering technique was utilized adhering to the principles of ALARA. FINDINGS: A 4 mm left lower lobe nodule on image 15 of 486 is unchanged from earlier exams. This is benign given stability. No pneumatosis, free air or portal venous gas is present. A 1.4 cm cystic lesion within the anterior aspect of the spleen is likely benign. There is no biliary or pancreatic ductal dilatation dictation. The gallbladder is mildly distended. There is minimal gallbladder wall thickening versus trace pericholecystic fluid. There is no pericholecystic infiltration. There is a suspected phrygian cap. Several left renal calculi measure up to 4 mm. There are no ureteral calculi. Several hypodense bilateral renal lesions favor cysts but are too small to characterize. There is no evidence for a bowel obstruction. The appendix is not visualized but there is no right lower quadrant inflammation. Major vasculature is patent. There is no lymphadenopathy or ascites. No acute fracture or suspicious lesion is identified within the visualized skeletal structures. IMPRESSION: 1. Mildly distended gallbladder with minimal gallbladder wall thickening versus trace pericholecystic fluid. If right upper quadrant pain, ultrasound is recommended. Findings discussed with Dr. Hicks at time of dictation. 2. No bowel obstruction. No bowel wall thickening. Nonvisualization of the appendix but no right quadrant inflammation. 3. Left-sided nephrolithiasis. No ureteral calculi. ACT 112: Negative or not required by law. Electronically signed by: Keo Westfall M.D. 11/09/2020 6:51 AM MDM Narrative This patient was evaluated and appeared to be in some discomfort. IV access was obtained and laboratory work was drawn. An order for cardiac monitoring was placed and patient is noted to be in a sinus bradycardia 55 bpm. Patient was hydrated with normal saline solution, given IV Dilaudid and Zofran for her discomfort. CT imaging of the abdomen pelvis was performed as the patient had pain in the epigastric region through to her back. There was a concern for cholecystitis versus pancreatitis. Patient's lipase, liver enzymes, bilirubin and WBC are normal however there is trace pericholecystic fluid and a distended gallbladder ordered CT. Per radiology recommendations, an ultrasound was ordered and follow-up. I did explain the findings and plan to the patient. Case will be signed out to Dr. Bernstein at the change of shift awaiting final disposition. Impression & Plan Epigastric abdominal pain Discharge Plan Visit Data Chief Complaint: GI Assessment Stated Complaint: ULCER ED Provider: Blanche Hicks Discharge Problem: Epigastric abdominal pain Patient Disposition: Still a Patient Forms Stand Alone Forms: [facility] [employer] Prescriptions Prescriptions: No Action Ajovy Autoinjector 225 mg/1.5 mL auto-injector 225 mg subcut MONTHLY Qty: 1.5 RF: 5 marfquaqjj-dshmdcnnvavry-jsuu 50-325-40 mg tablet 1 tab PO DAILY PRN (Reason: Migraine Headache) RF: 0 rizatriptan 5 mg Tablet 5 mg PO DIRECTED PRN (Reason: Migraine Headache) RF: 0 biotin 5 mg Capsule 5 mg PO DAILY RF: 0 Referrals Referrals: Apolonia Lamas DO [Primary Care Provider] -
[2020-11-09] MEDS ORDERED: HYDROmorphone INJ 0.5 MG/0.5 ML SYR ONE (06:33)
[2020-11-09] MEDS ORDERED: ONDANSETRON INJ 2 MG/ML 2 ML VIAL ONE ×2 (06:33→10:27)
--- NOTE | 2020-11-09 06:52 | CT Scan Report ---
CT OF THE ABDOMEN AND PELVIS WITH CONTRAST CLINICAL HISTORY: Upper abdominal pain. COMPARISON STUDY: CT of the abdomen and pelvis March 16, 2020. TECHNIQUE: Following IV administration of 93 mL of Optiray, axial images of the abdomen and pelvis we re obtained from the lung bases to the proximal femurs. Images were reviewed in the axial, sagittal, and coronal planes. IV contrast was administered without complication. Automated exposure control wa s utilized for the study. A dose lowering technique was utilized adhering to the principles of ALARA . FINDINGS: A 4 mm left lower lobe nodule on image 15 of 486 is unchanged from earlier exams. This is b enign given stability. No pneumatosis, free air or portal venous gas is present. A 1.4 cm cystic lesi on within the anterior aspect of the spleen is likely benign. There is no biliary or pancreatic ducta l dilatation dictation. The gallbladder is mildly distended. There is minimal gallbladder wall thicke lenka versus trace pericholecystic fluid. There is no pericholecystic infiltration. There is a suspect ed phrygian cap. Several left renal calculi measure up to 4 mm. There are no ureteral calculi. Severa l hypodense bilateral renal lesions favor cysts but are too small to characterize. There is no eviden ce for a bowel obstruction. The appendix is not visualized but there is no right lower quadrant infla mmation. Major vasculature is patent. There is no lymphadenopathy or ascites. No acute fracture or ellsworth spicious lesion is identified within the visualized skeletal structures. IMPRESSION: 1. Mildly distended gallbladder with minimal gallbladder wall thickening versus trace pericholecystic fluid. If right upper quadrant pain, ultrasound is recommended. Findings discussed with Dr. Yohana solares at time of dictation. 2. No bowel obstruction. No bowel wall thickening. Nonvisualization of the appendix but no right quad rant inflammation. 3. Left-sided nephrolithiasis. No ureteral calculi. ACT 112: Negative or not required by law. Electronically signed by: Keo Westfall M.D. 11/09/2020 6:51 AM
--- NOTE | 2020-11-09 07:39 | Ultrasound Report ---
US gallbladder CLINICAL HISTORY: epigastric pain, distended GB on CT COMPARISON STUDY: Right upper quadrant ultrasound January 17, 2019. CT of the abdomen and pelvis p erformed earlier today. FINDINGS: The liver is sonographically normal. Caliber of the common bile duct is at the limits of no rmal. Pancreas is unremarkable. There is mild gallbladder wall thickening. Gallbladder is mildly dist ended. There is a phrygian cap. No gallstones are identified. Sonographic Napoles sign could not be as sessed for in this patient. There is no right hydronephrosis. IMPRESSION: Mildly distended gallbladder with mild gallbladder wall thickening. Although no gallston es identified, acute cholecystitis cannot be completely excluded. If indicated, a hepatobiliary scan could be obtained. ACT 112: Negative or not required by law. Electronically signed by: Keo Westfall M.D. 11/09/2020 7:38 AM
--- NOTE | 2020-11-09 08:15 | Emergency Department Note ---
ED Visit Note .
[2020-11-09] MEDS ORDERED: cefOXitin 2,000 MG/60 ML BAG IV STA (08:22)
--- NOTE | 2020-11-09 08:24 | History & Physical Report ---
Date of Service November 09, 2020 Assessment & Plan (1) Epigastric abdominal pain: This is a 40y F with a PMH of headache who presented to the [facility] ED on 11/09/20 with complaints of abdominal pain that started yesterday. Pain located in the epigastric region that radiates towards the back. Pain was made worse yesterday after eating a meatball sub. In the ER patient underwent a CT a/p that revealed a mildly distended gallbladder with minimal gallbladder wall thickening versus trace pericholecystic fluid and a follow up RUQ US confirmed these findings and could not rule out acute cholecystitis. WBC 9.9, LFT's within normal limits, lipase: 266. Patient afebrile with stable vital signs. On exa mination patient has some ttp in the epigastric and RUQ regions. Based on history, imaging findings, and examination we will proceed to take patient to the OR for a laparoscopic cholecystectomy. Keep NPO with IVF and start preop abx. Covid test pending. Dr. Nicholson will be by to obtain surgical consent. Dr. Nicholson-patient's findings are consistent with acute cholecystitis-her gallbladder is very distended and thickened Plan is to proceed with laparoscopic cholecystectomy. She and her both agree History of Present Illness Primary Care Provider: Apolonia Lamas DO This is a 40y F with a PMH of headache who presented to the [facility] ED on 11/09/20 with complaints of abdominal pain. Patient reports her pain started yesterday at work after eating dumplings with soy sauce for lunch. When she came home she ate a meatball sandwich for dinner and the pain subsequently got worse. The pain was located in the epigastric region and radiated towards her back. Patient has a history of h.pylori and thought this felt similar. She tried taking prilosec, maalox, and augmentin without any relief. She says she has a strong pain tolerance and rated her pain a 9/10. She presented to the ER for further evaluation. She underwent a CT a/p that revealed a mildly distended gallbladder with minimal gallbladder wall thickening versus trace pericholecystic fluid and a follow up RUQ US confirmed these findings and could not rule out acute cholecystitis. Patient denies any fevers/chills, nausea/vomiting. She states she has had similar attacks to this in the past, but never knew what it was, but that they are becoming more frequent now. She reports some light colored stools which is new for her. Past surgical history includes a laparoscopic hysterectomy. Allergies Allergy/AdvReac Type Severity Reaction Status Date / Time No Known Allergies Allergy Verified 10/20/20 15:35 Home Medications Medication Instructions Recorded Confirmed Type mzpguhgiaz-qrpvicizhsjht-hyrerzvv 1 tab PO DAILY PRN 12/20/18 10/20/20 History 50 mg-325 mg-40 mg tablet rizatriptan 5 mg tablet 5 mg PO DIRECTED PRN 02/16/20 10/20/20 History biotin 5 mg capsule 5 mg PO DAILY 06/12/20 10/20/20 History fremanezumab-vfrm 225 mg/1.5 mL 225 mg SUBCUT MONTHLY #1.5 ml 10/20/20 10/20/20 Rx subcutaneous auto-injector (Ajovy) Past Med/Surg History Medical History Anxiety Arthritis cervical- no ROM limitations Gastritis H pylori ulcer hx Kidney stones Migraine Postoperative abdominal pain with fever Renal colic Surgical History H/O: hysterectomy History of adenoidectomy History of colonoscopy History of cystoscopy + stent History of esophagogastroduodenoscopy (EGD) History of lithotripsy x2 History of tonsillectomy History of tooth extraction WTE Family History Mother Family history of reaction to anesthesia PONV, DIZZINESS Grandfather (Maternal) Family history of diabetes mellitus Grandfather (Paternal) Family history of diabetes mellitus Grandmother (Paternal) Family history of diabetes mellitus Grandmother (Maternal) Family history of diabetes mellitus Other No significant family history Social History Smoking Status: Never smoker Second Hand Exposure: No; Hx Alcohol Use: Yes Alcohol type: wine Hx Substance Use: No Preferred Language: Luxembourger Communication Ability: Effective Design Quality Engineer Required: No Beliefs That Will Affect Care: None Current Living Situation: Spouse and Family Feels Safe at Home: Yes Assistive Devices: None Review of Systems Constitutional: no fever and no chills Respiratory: no shortness of breath Cardiovascular: Additional Comments: no chest pain Gastrointestinal: + abdominal pain (upper abdomen, pain radiates into back), + bloating and + change in bowel habits (light colored stools); no nausea and no vomiting Physical Exam Physical Exam: awake/alert Constitutional: well developed and well nourished; no acute distress Respiratory: normal respiratory effort Gastrointestinal (Abdomen): Inspection/Auscultation: + abdominal surgical scar (laparoscopic incisions from prior hysterectomy) Percussion/Palpation: + abdomen tender (mild ttp in epigastric region and RUQ) and abdomen soft; no guarding Results & Data Results & Data ([facility]) Vital Signs (Past 12 Hours) Vital Signs Pulse Resp BP BP Pulse Ox 11/09/20 05:23 16 108/73 98 11/09/20 05:21 108/73 11/09/20 04:50 66 23 11/09/20 04:41 53 L 21 11/09/20 04:36 20 98 11/09/20 04:30 52 L 22 11/09/20 04:26 55 L 23 11/09/20 04:12 55 L 17 11/09/20 03:45 98 US gallbladder CLINICAL HISTORY: epigastric pain, distended GB on CT COMPARISON STUDY: Right upper quadrant ultrasound January 17, 2019. CT of the abdomen and pelvis performed earlier today. FINDINGS: The liver is sonographically normal. Caliber of the common bile duct is at the limits of normal. Pancreas is unremarkable. There is mild gallbladder wall thickening. Gallbladder is mildly distended. There is a phrygian cap. No gallstones are identified. Sonographic Napoles sign could not be assessed for in this patient. There is no right hydronephrosis. IMPRESSION: Mildly distended gallbladder with mild gallbladder wall thickening. Although no gallstones identified, acute cholecystitis cannot be completely excluded. If indicated, a hepatobiliary scan could be obtained. ACT 112: Negative or not required by law. Electronically signed by: Keo Westfall M.D. 11/09/2020 7:[address] OF THE ABDOMEN AND PELVIS WITH CONTRAST CLINICAL HISTORY: Upper abdominal pain. COMPARISON STUDY: CT of the abdomen and pelvis March 16, 2020. TECHNIQUE: Following IV administration of 93 mL of Optiray, axial images of the abdomen and pelvis were obtained from the lung bases to the proximal femurs. Images were reviewed in the axial, sagittal, and coronal planes. IV contrast was administered without complication. Automated exposure control was utilized for the study. A dose lowering technique was utilized adhering to the principles of ALARA. FINDINGS: A 4 mm left lower lobe nodule on image 15 of 486 is unchanged from e arlier exams. This is benign given stability. No pneumatosis, free air or portal venous gas is present. A 1.4 cm cystic lesion within the anterior aspect of the spleen is likely benign. There is no biliary or pancreatic ductal dilatation dictation. The gallbladder is mildly distended. There is minimal gallbladder wall thickening versus trace pericholecystic fluid. There is no pericholecystic infiltration. There is a suspected phrygian cap. Several left renal calculi measure up to 4 mm. There are no ureteral calculi. Several hypodense bilateral renal lesions favor cysts but are too small to characterize. There is no evidence for a bowel obstruction. The appendix is not visualized but there is no right lower quadrant inflammation. Major vasculature is patent. There is no lymphadenopathy or ascites. No acute fracture or suspicious lesion is identified within the visualized skeletal structures. IMPRESSION: 1. Mildly distended gallbladder with minimal gallbladder wall thickening versus trace pericholecystic fluid. If right upper quadrant pain, ultrasound is recommended. Findings discussed with Dr. Hicks at time of dictation. 2. No bowel obstruction. No bowel wall thickening. Nonvisualization of the appendix but no right quadrant inflammation. 3. Left-sided nephrolithiasis. No ureteral calculi. ACT 112: Negative or not required by law. Electronically signed by: Keo Westfall M.D. 11/09/2020 6:51 AM PG Care Time/CCT Total # of Minutes Spent Total Time Spent with Patient: Total time spent is greater than 50% in coordination of care (as documented) at patient's floor/unit and/or counseling patient: Coding Level of Care Code 87958 Initial Inpt Care Lvl 2 Diagnoses Epigastric abdominal pain R10.13
[2020-11-09] MEDS ORDERED: fentaNYL citrate 100 MCG/2 ML VIAL ONE ×2 (10:08→10:28)
[2020-11-09] MEDS ORDERED: MIDAZOLAM HCL 1 MG/ML 2ML VIAL ONE ×2 (10:08→10:27)
[2020-11-09] MEDS ORDERED: NEOSTIGMINE METHYLSULFATE 1 MG/ML 10ML VIAL ONE (10:27)
[2020-11-09] MEDS ORDERED: PROPOFOL IV EMULSION 10 MG/ML 20 ML VIAL IV ONE (10:27)
[2020-11-09] MEDS ORDERED: LIDOCAINE 2% 2 ML VIAL/AMP(20MG/ML) INFIL ONE (10:27)
[2020-11-09] MEDS ORDERED: GLYCOPYRROLATE 0.2 MG/ML VIAL ONE ×2 (10:27→12:00)
[2020-11-09] MEDS ORDERED: DEXAMETHASONE SOD INJ 4 MG/ML VIAL ONE (10:27)
[2020-11-09] MEDS ORDERED: ONDANSETRON INJ 2 MG/ML 2 ML VIAL IV PRN ×2 (10:34→14:01)
[2020-11-09] MEDS ORDERED: HYDROmorphone INJ 1 MG/ML SYRINGE IV PRN (10:34)
[2020-11-09] MEDS ORDERED: ATROPINE SULFATE 0.1 MG/ML 10ML SYR IV PRN (10:34)
[2020-11-09] MEDS ORDERED: ePHEDrine sulfate 50 MG/ML AMP IV PRN (10:34)
[2020-11-09] MEDS ORDERED: BUPIVACAINE 0.5 % 5 MG/1 ML MPF 30ML VIAL ONE (10:35)
--- NOTE | 2020-11-09 10:38 | Anesthesiology Consultation ---
Date of Service November 09, 2020 Assessment & Plan Chart Review Chart Review: Acceptable Risk for Surgery and Patient NOT seen in Pre Admission Testing Consults Requested none History Surgery Operation Date: 11/09/20 07:00 Proposed Procedures p Laparoscopic Cholecystectomy - Myles Nicholson MD, FACS Height/Weight Weight: 63.503 kg Allergies Allergy/AdvReac Type Severity Reaction Status Date / Time No Known Allergies Allergy Verified 10/20/20 15:35 Medications Home Medications Medication Instructions Recorded Confirmed Last Taken ktybdjgocm-edpogctwewlsa-lnrfstgm 1 tab PO DAILY PRN 12/20/18 10/20/20 06/12/20 50 mg-325 mg-40 mg tablet rizatriptan 5 mg tablet 5 mg PO DIRECTED PRN 02/16/20 10/20/20 06/12/20 biotin 5 mg capsule 5 mg PO DAILY 06/12/20 10/20/20 06/12/20 fremanezumab-vfrm 225 mg/1.5 mL 225 mg SUBCUT MONTHLY #1.5 ml 10/20/20 10/20/20 Unknown subcutaneous auto-injector (Ajovy) NPO Date Last Intake of Fluids: 11/09/20 Time Last Intake of Fluids: 04:30 Date Last Intake of Solids: 11/09/20 Time Last Intake of Solids: 02:00 Past Medical History Medical History Anxiety Arthritis cervical- no ROM limitations Gastritis H pylori ulcer hx Kidney stones Migraine Postoperative abdominal pain with fever Renal colic Exercise / Class Metabolic Activity II 4-5 Yardwork/Stairs/Walk up hill Past Family History Family History Mother Family history of reaction to anesthesia PONV, DIZZINESS Grandfather (Maternal) Family history of diabetes mellitus Grandfather (Paternal) Family history of diabetes mellitus Grandmother (Paternal) Family history of diabetes mellitus Grandmother (Maternal) Family history of diabetes mellitus Other No significant family history Past Surgical History Surgical History H/O: hysterectomy History of adenoidectomy History of colonoscopy History of cystoscopy + stent History of esophagogastroduodenoscopy (EGD) History of lithotripsy x2 History of tonsillectomy History of tooth extraction WTE Past Anesthesia History No Hx of Anesthesia Complications and No Family Hx of Anesthesia Complications History of PONV No Hx of Motion Sickness and History of PONV Social History Smoking Status: Never smoker tobacco type: cigarettes Hx Alcohol Use: Yes Alcohol type: wine alcohol intake frequency: a few times a month Hx Substance Use: No Physical Exam Vital Signs Last Vital Signs Pulse 54 L 11/09/20 10:10 Resp 18 11/09/20 10:10 BP 105/72 11/09/20 10:10 Pulse Ox 100 11/09/20 09:00 Testing Laboratory Results 11/09/20 04:23 11/09/20 04:23 Urine Color Yellow 11/09/20 05:17 Urine Appearance Clear (Clear) 11/09/20 05:17 Urine pH 7.5 (4.5-7.5) 11/09/20 05:17 Ur Specific Nicasio 1.025 (1.000-1.030) 11/09/20 05:17 Urine Protein Negative (Negative) 11/09/20 05:17 Urine Glucose (UA) Negative (Negative) 11/09/20 05:17 Urine Ketones Negative (Negative) 11/09/20 05:17 Urine Nitrite Negative (Negative) 11/09/20 05:17 Ur Leukocyte Esterase Negative (Negative) 11/09/20 05:17
[2020-11-09] MEDS ORDERED: ACETAMINOPHEN 1000 MG/100 ML IV IV ONE (10:40)
[2020-11-09] MEDS ORDERED: ROCURONIUM BROMIDE 10 MG/ML 5 ML VIAL IV ONE (11:18)
[2020-11-09] MEDS ORDERED: ACETAMINOPHEN 1,000 MG/100 ML VIAL IV ONE (11:51)
--- NOTE | 2020-11-09 11:51 | Post Operative Brief Note ---
PG Immediate Post Op with CF Date of Surgery November 09, 2020 Pre & Post Diagnosis Operation Date: 11/09/20 07:00 Pre-Op Diagnosis: Epigastric Abdominal Pain Post-Op Diagnosis: Epigastric Abdominal Pain, acute cholecystitis I identified the patient and participated in the time-out.: Yes Procedure Operation Date: 11/09/20 07:00 Actual Procedures p Laparoscopic Cholecystectomy(Not Applicable) - Myles Nicholson MD, FACS Surgeon Myles Nicholson MD, FACS Signal Maintainer May Starr Estimated Blood Loss 5 Findings Consistent with Post-Op Diagnosis Specimens Specimen Description: A: Gallbladder and Contents
--- NOTE | 2020-11-09 12:18 | Operative Report (OR) ---
DATE OF PROCEDURE: 11/09/2020 OPERATION: Laparoscopic cholecystectomy. PREOPERATIVE DIAGNOSIS: Acute cholecystitis. POSTOPERATIVE DIAGNOSIS: Acute cholecystitis. STAFF SURGEON: Myles Nicholson MD EXHIBITS MANAGER: Ofelia Starr PA-C ANESTHESIA: General. DESCRIPTION OF PROCEDURE: The patient was brought into the operating room, placed on the operating t able in supine position. Her abdomen was prepped and draped in the usual fashion. Pneumatic stockin gs and orogastric tube were placed. Incision was made above the umbilicus using 0.5% plain Marcaine to anesthetize all incisions carrying dissection down to the fascia, placing a Veress needle, produci ng pneumoperitoneum. At this level, an 11 mm port was placed and then under visualization three 5 mm ports, one cephalad and two laterally were placed. Gallbladder was grasped and retracted. There we re some adhesions to the gallbladder. It was acutely inflamed and significantly distended. It was a spirated of sludge-like bile. Dissection was carried out to the leilani hepatis showing some scar tiss ue consistent with chronic inflammation identifying the cystic duct and cystic artery. These were cl ipped and transected and the gallbladder dissected away from the liver bed in the usual fashion. Gal lbladder was placed in an Endobag. After appropriate irrigation and hemostasis, the Endobag was brandin darcie through the umbilical site. All ports were removed. Umbilical fascia closed using interrupted 0 Vicryl suture. The skin was reapproximated using subcuticular 4-0 Monocryl with Dermabond. [facility] ient was transferred to recovery room in stable condition. Job ID: [id number]
[2020-11-09] MEDS: fentaNYL citrate 100 MCG/2 ML VIAL IV PRN ×2 (12:27→12:35)
--- NOTE | 2020-11-09 13:08 | Anesthesiology Progress Note ---
Date of Service November 09, 2020 Anesthesia Post Procedure Vital Signs Vital Signs: Temp Pulse Pulse Resp BP BP Pulse Ox 11/09/20 12:50 36.1 C L 53 L 20 125/74 100 11/09/20 12:40 50 L 22 109/71 100 11/09/20 12:30 55 L 16 132/83 95 11/09/20 12:20 50 L 16 132/82 100 11/09/20 12:10 67 19 123/82 100 11/09/20 12:04 36.3 C L 90 20 132/84 100 11/09/20 10:51 37.3 C 60 18 114/73 100 11/09/20 10:10 54 L 18 105/72 11/09/20 09:00 56 L 20 112/81 100 11/09/20 08:31 56 L 18 126/87 100 11/09/20 08:00 53 L 18 100 11/09/20 07:38 62 20 122/89 100 11/09/20 05:23 16 108/73 98 11/09/20 05:21 108/73 11/09/20 04:50 66 23 11/09/20 04:41 53 L 21 11/09/20 04:36 20 98 11/09/20 04:30 52 L 22 11/09/20 04:26 55 L 23 11/09/20 04:12 55 L 17 11/09/20 03:45 98 Pain Intensity Medial Abdomen: Pain Intensity: 3 Transfer of Care Handoff Completed per policy Notes Mental Status: alert / awake / arousable and participated in evaluation Patient Amnestic to Procedure: Yes Nausea / Vomiting: adequately controlled Pain: adequately controlled Airway Patency, RR, SpO2: stable & adequate BP & HR: stable & adequate Hydration State: stable & adequate Anesthetic Complications: no major complications apparent and Pt Satisfied with anesthetic care
[2020-11-09] MEDS ORDERED: PROMETHAZINE HCL 25 MG in SODIUM CHLORIDE 0.9% 50 ML IV PRN (14:01)
[2020-11-09] MEDS ORDERED: oxyCODONE HCL IR 5 MG TAB (IMMEDIATE RELEASE) PO PRN (14:01)
[2020-11-09] MEDS ORDERED: ACETAMINOPHEN 325 MG TAB PO PRN (14:01)
[2020-11-09] MEDS ORDERED: IBUPROFEN 600 MG TAB PO PRN (14:01)
[2020-11-09] MEDS ORDERED: MoRPHine SULFATE 2 MG/ML CARP IV PRN (14:01)
[2020-11-09] MEDS ORDERED: LACTATED RINGER'S 1,000 ML IV SCH (14:01)
[2020-11-09] MEDS ORDERED: PROMETHAZINE HCL 12.5 MG in SODIUM CHLORIDE 0.9% 50 ML IV PRN (14:01)
--- NOTE | 2020-11-09 17:16 | Electrocardiogram Report ---
Test Reason : Blood Pressure : / mmHG Vent. Rate : 051 BPM Atrial Rate : 051 BPM P-R Int : 140 ms QRS Dur : 080 ms QT Int : 468 ms P-R-T Axes : 053 040 054 degrees QTc Int : 431 ms Sinus bradycardia Abnormal ECG When compared with ECG of 16-MAR-2020 21:48, Vent. rate has decreased BY 33 BPM Confirmed by Deangelo Ballard ([id number]) on 11/09/2020 5:15:45 PM Referred By: REFERRED SELF Confirmed By:Lorenzo Ballard
[2020-11-09] MEDS: MoRPHine SULFATE 4 MG/ML 1 ML CARP\\VIAL IV PRN (22:49)
[2020-11-10] MEDS: MoRPHine SULFATE 4 MG/ML 1 ML CARP\\VIAL IV PRN (04:28)
--- NOTE | 2020-11-10 09:27 | Emergency Department Note ---
ED Visit Note Received patient in signout. History physical verified by me. Patient is going over to ultrasound. Repeat examination revealed mild right upper quadrant abdominal tenderness. I did discuss the ultrasound findings with the surgeon on-call who agreed to take the patient to the operating room. In the meantime the patient was started on Mefoxin. [facility], [id number] Ultrasound Report Patient: DAYANA STRONG Date: 11/09/20MR#: [id number]: 100 DANYA GÓMEZAcct ID:[id number]: Date: [address] Zip: [place] [id number]: [id number]: EDSex: FRoom/Bed:Att Phy:Diagnosis: ULCERPri Phy: Apolonia Lamas, DOService Date: 11/09/20Fam Phy:Interpreting Phy: Keo Westfall MDAdmit Phy: Ordering Phy: Blanche Hicks M.D. cc: ~ US gallbladder CLINICAL HISTORY: epigastric pain, distended GB on CT COMPARISON STUDY: Right upper quadrant ultrasound January 17, 2019. CT of the abdomen and pelvis performed earlier today. FINDINGS: The liver is sonographically normal. Caliber of the common bile duct is at the limits of normal. Pancreas is unremarkable. There is mild gallbladder wall thickening. Gallbladder is mildly distended. There is a phrygian cap. No gallstones are identified. Sonographic Napoles sign could not be assessed for in this patient. There is no right hydronephrosis. IMPRESSION: Mildly distended gallbladder with mild gallbladder wall thickening. Although no gallstones identified, acute cholecystitis cannot be completely excluded. If indicated, a hepatobiliary scan could be obtained. ACT 112: Negative or not required by law. Electronically signed by: Keo Westfall M.D. 11/09/2020 7:38 AM Dictated: 11/09/20 0734Transcribed: 11/09/20 0735 .
--- NOTE | 2020-11-11 15:19 | Discharge Summary ---
Date of Service November 11, 2020 Admission HPI Per Admitting Provider This is a 40y F with a PMH of headache who presented to the [facility] ED on 11/09/20 with complaints of abdominal pain. Patient reports her pain started yesterday at work after eating dumplings with soy sauce for lunch. When she came home she ate a meatball sandwich for dinner and the pain subsequently got worse. The pain was located in the epigastric region and radiated towards her back. Patient has a history of h.pylori and thought this felt similar. She tried taking prilosec, maalox, and augmentin without any relief. She says she has a strong pain tolerance and rated her pain a 9/10. She presented to the ER for further evaluation. She underwent a CT a/p that revealed a mildly distended gallbladder with minimal gallbladder wall thickening versus trace pericholecystic fluid and a follow up RUQ US confirmed these findings and could not rule out acute cholecystitis. Patient denies any fevers/chills, nausea/vomiting. She states she has had similar attacks to this in the past, but never knew what it was, but that they are becoming more frequent now. She reports some light colored stools which is new for her. Past surgical history includes a laparoscopic hysterectomy. Principal Diagnosis acute cholecystitis Discharge Exam awake/alert Constitutional no acute distress Gastrointestinal (Abdomen) Inspection/Auscultation: + abdominal surgical incision (c/d/i) Percussion/Palpation: abdomen soft Discharge Data Allergies Allergy/AdvReac Type Severity Reaction Status Date / Time No Known Allergies Allergy Verified 10/20/20 15:35 Consultations 11/09/20 08:16 ED Decision to Admit Stat Procedures Performed Operation Date: 11/09/20 07:00 Actual Procedures p Laparoscopic Cholecystectomy(Not Applicable) - Myles Nicholson MD, FACS Ordered Studies 11/09/20 05:09 CT abd pelvis IV con only Urgent 11/09/20 06:48 US gallbladder Stat Hospital Course (1) Acute cholecystitis: This is a 40y F with a PMH of headache who presented to the [facility] ED on 11/09/20 with complaints of abdominal pain. Workup in the ER with a CT a/p revealed a mildly distended gallbladder with minimal gallbladder wall thickening versus trace pericholecystic fluid and a follow up RUQ US confirmed these findings and could not rule out acute cholecystitis. On examination patient was tender to palpation in the RUQ and epigastric regions. Due to concern for acute cholecystitis she was booked for the OR and underwent a laparoscopic cholecystectomy with Dr. Nicholson on 11/09. The patient tolerated the procedure well, please see op note for full details. She recovered in the PACU and was transferred to the med/surg unit in stable condition. Post op she voided spontaneously without issues, diet was advanced as tolerated, and pain remained controlled on a prn pain regimen. Incisions c/d/i. On POD#1 the patient continued to do well and was deemed stable for discharge to home with plans to follow up in clinic with Dr. Nicholson in 1-2 weeks. Total Time Total Time Spent Total Time Spent (In Minutes): 10 Discharge Plan Discharge Items Patient Disposition: Home - Self-Care Reason For Visit: GALLBLADDER SURGERY Discharge Diagnosis: laparoscopic cholecystectomy Activity: Per Instructions section Activity Comment: light activity for 4 weeks Lifting: No more than 10 pounds Bathing Comment: may shower; no soaking in tubs/pools Sexual Activity: When tolerated Exercise/Sports: Wait until after follow-up appointment Exercise Comment: wait 4 weeks Driving/Machine Use: no driving while taking narcotics for pain Non-emergency contact: Primary Care Provider and Surgeon Call non-emergency contact if: you have any medication questions, your symptoms worsen, your pain is not controlled, your pain is worsening, your pain is concerning for you, you have a fever, your temperature is above 101.5, your wound has increased redness, your wound has increased drainage and your wound pain has increased Follow-up/Referrals: Myles Nicholson MD, FACS [Physician] - (Patient wants to make her own appointment) Apolonia Lamas DO [Primary Care Provider] - (Patient wants to make her own hospital follow up) Diet: Regular Addtl Attending Provider Instructions: SPECIAL CARE INSTRUCTIONS: * Cover incisions and change daily for comfort/drainage. * May use ibuprofen for pain as tolerated. * Expect some swelling and bruising. Call your doctor if: * Temperature above 101 degrees * Pain not relieved by pain medicine ordered * There is increased drainage or redness from any incision * You have any unanswered questions or concerns [phone]. FOLLOW UP VISIT: If not already scheduled, please call the office for a follow-up visit. For 2 weeksno sutures to remove OFFICE PHONE NUMBER: Dr. Nicholson Office Pending Studies at Discharge: Yes Studies:: surgical pathology Stand-Alone Forms: [email or web address] Medications and DC Order Prescriptions: New hydrocodone-acetaminophen 5-325 mg tablet 1 tab PO Q4H PRN (Reason: pain) Qty: 20 RF: 0 Continued Ajovy Autoinjector 225 mg/1.5 mL auto-injector 225 mg subcut MONTHLY Qty: 1.5 RF: 5 dirgrixxcr-euslluajxmbvm-sdii 50-325-40 mg tablet 1 tab PO DAILY PRN (Reason: Migraine Headache) RF: 0 rizatriptan 5 mg Tablet 5 mg PO DIRECTED PRN (Reason: Migraine Headache) RF: 0 biotin 5 mg Capsule 5 mg PO DAILY RF: 0 Discharge Orders: Discharge Order (Routine); Ordered 11/10/20 Ordered By: Myles Nicholson Admission Data Admit Date/Time: 11/09/20 11:51 Attending Provider: Myles Nicholson Admit Provider: Myles Nicholson Primary Care Provider: Apolonia Lamas Other Providers: Myles Nicholson Other Interventions: Discharge Summary Assessment (RN) Last Done: 11/10/20 06:32 Coding Level of Care Code D/C DAY MANAGEMENT <30 MINS Diagnoses Acute cholecystitis K81.0
--- NOTE | 2020-11-11 22:40 | Discharge Summary (DS) ---
DATE OF DISCHARGE: 11/10/2020. PRINCIPAL DIAGNOSIS: Acute cholecystitis. PROCEDURE: The patient underwent laparoscopic cholecystectomy. 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 She has evidence on imaging of a distended gallbladder with inflamm ation consistent with acute cholecystitis. The patient was taken to the operating room on 11/09/2020 where she underwent laparoscopic cholecystectomy, which she tolerated very well. She was kept overn ight and felt stable for discharge on 11/10/2020 to be followed in the surgical clinic. Job ID: [id number]
== END 2020-11-10 08:06 | disposition home or self-care (01) ==
LOC: ED 03:43 → 3W 10:21 → OR 10:21